=== PATIENT | female | born 1935 | race Caucasian/White ===

== ENCOUNTER 2021-11-26 21:54 | Emergency (ER) | payer MEDICARE ==
[2021-11-26 22:25] VITALS: RESP 18
[2021-11-27] MEDS ORDERED: PROPARACAINE 0.5% OPHTH DROPS 15 ML BTL RIGHT EYE STA (01:37)
[2021-11-27] MEDS ORDERED: ONDANSETRON 4 MG/2 ML VIAL IVP STA (02:03)
[2021-11-27] MEDS ORDERED: HYDROmorphone 0.5 MG/0.5 ML SYRINGE IVP STA (02:03)
[2021-11-27] MEDS ORDERED: ONDANSETRON ODT 4 MG TAB PO STA (03:00)
[2021-11-27] MEDS ORDERED: HYDROmorphone 0.5 MG/0.5 ML SYRINGE IM STA (03:00)
--- NOTE | 2021-11-27 03:07 | ED ---
General Adult HPI - General Chief complaint: Nausea/Vomiting/Diarrhea Stated complaint: Right Eye Problem Time Seen by Provider: 11/27/21 01:02 Source: patient Mode of arrival: ambulatory Limitations: no limitations - History of Present Illness Initial comments: This patient is a 86-year-old woman presenting to have evaluation mainly for right eye pain, headache, nausea and vomiting. Symptoms have been going on but were initially mild for a couple of days, and then became more and more severe over the course of the of today. The patient had actually gone to [facility] earlier in the day was seen there and given antibiotic drops to use. The patient states that her symptoms continued to worsen so she presents here. The patient is initially triaged and has nausea and vomiting but when I see the patient her complaint is definitely more eye related. She does note that she had injection to the right eye for macular degeneration on Saturday through a visiting bingo clerk that Dr. Barajas's office. She has not noted any fever or chills. The patient noticed that her eye was progressively more red over the course of today. There was pain. There was associated headache. She states that the vision is very blurry with the right eye. -: days(s) Location: eyes Radiation: non-radiation Quality: aching Consistency: constant Improves with: none Worsens with: none Associated Symptoms: headaches, nausea/vomiting Treatments Prior to Arrival: none - Related Data Home Medications Medication Instructions Recorded Confirmed Estradiol [Estrace] 1 mg PO Q2D 05/19/14 04/13/15 Omeprazole [PriLOSEC] 20 mg PO QAM 05/19/14 04/13/15 HYDROcodone/APAP 5-325MG [[place] 5] 1 each PO Q6H PRN 08/23/14 04/13/15 Focus 1 tab PO BID 10/04/14 04/13/15 Ascorbic Acid [Vitamin C] 500 mg PO DAILY 03/02/15 04/13/15 Calcium Carbonate/Vitamin D3 1 each PO DAILY 03/02/15 04/13/15 [Calcium 600 + Vit D Tablet] Acetaminophen [Tylenol] 500 mg PO Q4-6H PRN 03/23/15 04/13/15 Allergies Allergy/AdvReac Type Severity Reaction Status Date / Time morphine AdvReac Vomiting Verified 11/26/21 22:25 Review of Systems ROS Statement: Those systems with pertinent positive or pertinent negative responses have been documented in the HPI. ROS Other: All systems not noted in ROS Statement are negative. Constitutional: Denies: fever, chills Eyes: Reports: eye pain, vision change ENT: Denies: congestion Respiratory: Denies: cough, dyspnea Cardiovascular: Denies: chest pain, palpitations, syncope Gastrointestinal: Reports: nausea, vomiting. Denies: abdominal pain Genitourinary: Denies: dysuria Musculoskeletal: Denies: back pain Skin: Denies: rash Neurological: Reports: headache. Denies: weakness, numbness, paresthesias, confusion Past Medical History Past Medical History: GERD/Reflux, Hyperlipidemia, Osteoarthritis (OA) Additional Past Medical History / Comment(s): LOWER BACK PAIN. History of Any Multi-Drug Resistant Organisms: None Reported Past Surgical History: Appendectomy, Section, Hysterectomy, Joint Replacement, Tonsillectomy Additional Past Surgical History / Comment(s): RT KNEE REPLACEMENT. HIATAL HERNIA REPAIR. CATARACTS REMOVED. liver biopsy 12/10 Past Anesthesia/Blood Transfusion Reactions: No Reported Reaction Past Psychological History: No Psychological Hx Reported Smoking Status: Never smoker Past Alcohol Use History: None Reported Past Drug Use History: None Reported - Past Family History Mother Family Medical History: Cancer General Exam Limitations: no limitations General appearance: alert Head exam: Present: atraumatic, normocephalic Eye exam: Present: conjunctival injection. Absent: scleral icterus Expanded Eyelids: Normal Inspection: Right Sclera/Conjunctival: Normal Inspection: Left, Injection: Right Anterior chamber: Normal Inspection: Left IOP measured with: other (Right eye pressure is 26 using the iCare device) ENT exam: Present: normal oropharynx Neck exam: Present: normal inspection, full ROM. Absent: lymphadenopathy Respiratory exam: Present: normal lung sounds bilaterally. Absent: respiratory distress, wheezes, rales, rhonchi, stridor Cardiovascular Exam: Present: regular rate, normal rhythm, normal heart sounds. Absent: systolic murmur, diastolic murmur, rubs, gallop GI/Abdominal exam: Present: soft. Absent: distended, tenderness, guarding, rebound, rigid, mass Extremities exam: Present: normal inspection, normal capillary refill. Absent: pedal edema, calf tenderness Back exam: Present: normal inspection. Absent: CVA tenderness (R), CVA tenderness (L) Neurological exam: Present: alert Skin exam: Present: warm, dry, intact, normal color. Absent: rash Course Vital Signs 11/26/21 11/27/21 11/27/21 22:21 01:44 03:18 Temperature 99 F 97.8 F Pulse Rate 83 65 91 Respiratory 18 18 18 Rate Blood Pressure 152/69 146/79 153/84 O2 Sat by Pulse 98 98 98 Oximetry Medical Decision Making - Medical Decision Making This patient is an 86-year-old woman who presents here with right eye complaint associated headache, nausea and vomiting. Patient is examined, including with the slit lamp, and high pressures are taken. The findings and the slit lamp included conjunctival injection, some scleral inflammation, corneal clouding, and hypopyon. There is no ophthalmology coverage here tonight though I did try to call Dr. Barajas, as she attends's clinic for the macular degeneration shots. I then recommended transfer for the patient to be seen by ophthalmology tonight. The patient feels that the transfer occurring in the middle of the night will not result in her seeing an bingo clerk sooner than if she shows up at the clinic at 8 AM. I did try to persuade her to be seen but she is going to decline transferring go directly to the clinic opens. Discussed the risks associated with not seeing the bingo clerk. The patient will return if there is any problem with her plan. Disposition Clinical Impression: Iritis, Hypopyon of right eye Disposition: Left Against Medical Advice Condition: Undetermined Instructions (If sedation given, give patient instructions): Iritis (ED) Is patient prescribed a controlled substance at d/c from ED?: No Referrals: Kyle Olvera MD [Primary Care Provider] - 1-2 days Rogelio Barajas MD [STAFF PHYSICIAN] - 1-2 days
[2021-11-27 03:19] VITALS: BP 153/84; PULSE 91; TEMP 97.8
== END 2021-11-27 03:22 | disposition left against medical advice (07) ==
LOC: SUPCPDRO 21:54 → EC 21:54
DX: H20.051 Hypopyon, right eye (principal); H20.9 Unspecified iridocyclitis; R11.2 Nausea with vomiting, unspecified; R51.9 Headache, unspecified; K21.9 Gastro-esophageal reflux disease without esophagitis; Z88.5 Allergy status to narcotic agent; Z53.29 Procedure and treatment not carried out because of patient's decision for other reasons; Z79.899 Other long term (current) drug therapy
CPT/HCPCS: 99283; 96372; J1170

== ENCOUNTER 2023-03-25 03:44 | Emergency (ER) | payer MEDICARE ==
[2023-03-25] MEDS ORDERED: KETOROLAC 15 MG/ML 1 ML VIAL IVP STA (04:22)
[2023-03-25] MEDS ORDERED: SODIUM CHLORIDE 0.9% 1,000 ML IV STA (04:22)
[2023-03-25] MEDS ORDERED: ACETAMINOPHEN TAB 500 MG TAB PO STA (04:22)
[2023-03-25] MEDS ORDERED: IPRATROPIUM-ALBUTEROL 3 ML NEB INHALATION STA (04:22)
--- NOTE | 2023-03-25 04:24 | ED ---
SOB HPI - General Source: EMS, RN notes reviewed, old records reviewed, Caregiver Mode of arrival: EMS Limitations: no limitations - History of Present Illness MD Complaint: anxiety (With pain, hip pain chronic pain) -: minutes(s) Severity: mild Quality: aching Consistency: constant Improves With: nothing Worsens With: nothing Context: anxiety Associated Symptoms: denies other symptoms Treatments Prior to Arrival: none <Yo Owens - Last Filed: 03/25/23 06:05> <Gerardo Lawrence - Last Filed: 03/25/23 08:33> - General Chief Complaint: Shortness of Breath Stated Complaint: Shorteness of breath Time Seen by Provider: 03/25/23 03:53 - History of Present Illness Initial Comments: This is a 87-year-old female DF for evaluation. Patient woke from sleep tonight and was pretty significantly anxious breathing fast having some pain increased pain which she has a history of. Patient has no traumas no other issues and symptoms began when she woke up. Patient per EMS was maybe had a fever on arrival. Arrival here to the ER patient has no complaints no shortness of breath which she was complaining of earlier but does admit to pain especially hip pain with history of chronic hip pain. Daughter is at bedside of ulcer by history and states patient doesn't seem to be admitted normal baseline self. Patient does not usually presents with hospital usually [facility] under care of her own physician (Yo Owens) - Related Data Home Medications Medication Instructions Recorded Confirmed Omeprazole [PriLOSEC] 20 mg PO QAM 05/19/14 04/13/15 estradioL [Estrace] 1 mg PO Q2D 05/19/14 04/13/15 HYDROcodone/APAP 5-325MG [[place] 5] 1 each PO Q6H PRN 08/23/14 04/13/15 Focus 1 tab PO BID 10/04/14 04/13/15 Ascorbic Acid [Vitamin C] 500 mg PO DAILY 03/02/15 04/13/15 Calcium Carbonate/Vitamin D3 1 each PO DAILY 03/02/15 04/13/15 [Calcium 600 + Vit D Tablet] Acetaminophen [Tylenol] 500 mg PO Q4-6H PRN 03/23/15 04/13/15 Allergies Allergy/AdvReac Type Severity Reaction Status Date / Time morphine AdvReac Vomiting Verified 11/26/21 22:25 Review of Systems ROS Other: All systems not noted in ROS Statement are negative. <AnnmarieYo lawrence Mandi - Last Filed: 03/25/23 06:05> ROS Other: All systems not noted in ROS Statement are negative. <MelindaGerardo D - Last Filed: 03/25/23 08:33> ROS Statement: Those systems with pertinent positive or pertinent negative responses have been documented in the HPI. Past Medical History Past Medical History: GERD/Reflux, Hyperlipidemia, Osteoarthritis (OA) Additional Past Medical History / Comment(s): LOWER BACK PAIN, liver disease, a- fib. History of Any Multi-Drug Resistant Organisms: None Reported Past Surgical History: Appendectomy, Section, Hysterectomy, Joint Replacement, Tonsillectomy Additional Past Surgical History / Comment(s): RT KNEE REPLACEMENT. HIATAL HERNIA REPAIR. CATARACTS REMOVED. liver biopsy 12/10 Past Anesthesia/Blood Transfusion Reactions: No Reported Reaction Past Psychological History: No Psychological Hx Reported Smoking Status: Never smoker Past Alcohol Use History: None Reported Past Drug Use History: None Reported - Past Family History Mother Family Medical History: Cancer <GracielaYo - Last Filed: 03/25/23 06:05> General Exam Limitations: no limitations General appearance: alert, in no apparent distress, anxious Head exam: Present: atraumatic, normocephalic, normal inspection Eye exam: Present: normal appearance, PERRL, EOMI. Absent: scleral icterus, conjunctival injection, periorbital swelling ENT exam: Present: normal exam, mucous membranes moist Neck exam: Present: normal inspection. Absent: tenderness, meningismus, lymphadenopathy Respiratory exam: Present: normal lung sounds bilaterally. Absent: respiratory distress, wheezes, rales, rhonchi, stridor Cardiovascular Exam: Present: regular rate, normal rhythm, normal heart sounds. Absent: systolic murmur, diastolic murmur, rubs, gallop, clicks GI/Abdominal exam: Present: soft, normal bowel sounds. Absent: distended, tenderness, guarding, rebound, rigid Extremities exam: Present: normal inspection, full ROM, normal capillary refill. Absent: tenderness, pedal edema, joint swelling, calf tenderness Back exam: Present: normal inspection Neurological exam: Present: alert, oriented X3, CN II-XII intact Psychiatric exam: Present: normal affect, normal mood Skin exam: Present: warm, dry, intact, normal color. Absent: rash <Yo Owens - Last Filed: 03/25/23 06:05> Course <Yo Owens - Last Filed: 03/25/23 06:05> Vital Signs 03/25/23 03/25/23 03/25/23 03:45 05:14 05:24 Temperature 99.5 F Pulse Rate 96 86 90 Respiratory 22 Rate Blood Pressure 134/51 O2 Sat by Pulse 94 L Oximetry 03/25/23 03/25/23 03/25/23 05:33 05:57 06:00 Temperature 99.7 F H Pulse Rate 92 84 Respiratory 18 16 Rate Blood Pressure 101/43 104/41 O2 Sat by Pulse 98 96 Oximetry - Reevaluation(s) Reevaluation #1: 03/25/23 06:05 Record is reviewed (Yo Owens) Reevaluation #2: 03/25/23 06:06 Symptoms improved pain is improved feels good for discharge home (Yo Owens) Reevaluation #3: 03/25/23 06:06 Patient family informed of results here in the ER (Yo Owens) Reevaluation #4: 03/25/23 04:24 Was pt. sent in by a medical professional or institution (, PA, STUDENT DEVELOPMENT SPECIALIST, urgent care, hospital, or correction...) When possible be specific @ -no Did you speak to anyone other than the patient for history (EMS, parent, family, police, friend...)? What history was obtained from this source @ -no Did you review nursing and triage notes (agree or disagree)? Why? @ -agree Are old charts reviewed (outside hosp., previous admission, EMS record, old EKG, old radiological studies, urgent care reports/EKG's, correction records)? Report findings @ -yes Differential Diagnosis (chest pain, altered mental status, abdominal pain women, abdominal pain men, vaginal bleeding, weakness, fever, dyspnea, syncope, headache, dizziness, GI bleed, back pain, seizure, CVA, palpatations, mental health, musculoskeletal)? @ -prior EKG interpreted by me (3pts min.). @ -yes X-rays interpreted by me (1pt min.). @ -yes CT interpreted by me (1pt min.). @ -no U/S interpreted by me (1pt. min.). @ -no What testing was considered but not performed or refused? (CT, X-rays, U/S, labs)? Why? @ -none What meds were considered but not given or refused? Why? @ -none Did you discuss the management of the patient with other professionals (professionals i.e. DrKaden, PA, STUDENT DEVELOPMENT SPECIALIST, lab, RT, psych nurse, psychotherapist social worker, paper sorter and counter, teacher, combat systems officer, casework specialist)? Give summary @ -no Was smoking cessation discussed for >3mins.? @ -no Was critical care preformed (if so, how long)? @ -no Were there social determinants of health that impacted care today? How? (Homelessness, low income, unemployed, alcoholism, drug addiction, transportation, low edu. Level, literacy, decrease access to med. care, halfway, rehab)? @ -none Was there de-escalation of care discussed even if they declined (Discuss DNR or withdrawal of care, Hospice)? DNR status @ -no What co-morbidities impacted this encounter? (DM, HTN, Smoking, COPD, CAD, Cancer, CVA, ARF, Chemo, Hep., AIDS, mental health diagnosis, sleep apnea, morbid obesity)? @ -none Was patient admitted / discharged? Hospital course, mention meds given and route, prescriptions, significant lab abnormalities, going to OR and other pertinent info. @ - Undiagnosed new problem with uncertain prognosis? @ -no Drug Therapy requiring intensive monitoring for toxicity (Heparin, Nitro, Insulin, Cardizem)? @ -no Were any procedures done? @ -no Diagnosis/symptom? @ - Acute, or Chronic, or Acute on Chronic? @ -Acute Uncomplicated (without systemic symptoms) or Complicated (systemic symptoms)? @ -Complicated Side effects of treatment? @ -no Exacerbation, Progression, or Severe Exacerbation? @ -exacerbation Poses a threat to life or bodily function? How? (Chest pain, [place], [place], pneumonia, PE, COPD, DKA, ARF, appy, cholecystitis, CVA, Diverticulitis, Homicidal, Suicidal, threat to staff... and all critical care pts) @ -yes (Yo Owens) Reevaluation #5: 03/25/23 06:06 Differential Dyspnea: Coronary syndrome, arrhythmia, tamponade, asthma, COPD, pulmonary embolism, pneumonia, pneumothorax, pulmonary effusion, anaphylaxis, diabetic ketoacidosis, flailed chest, pulmonary contusion, diaphragmatic rupture, anemia, neuromuscular, this is not meant to be an all-inclusive list. (Yo Owens) Medical Decision Making - Lab Data Result diagrams: 03/25/23 04:06 03/25/23 04:06 - EKG Data -: EKG Interpreted by Me (EKG is sinus 74.IL 75 QRS 150 QTC 426) - Radiology Data Radiology results: report reviewed (Chest x-rays negative for acute disease), image reviewed <Yo Owens - Last Filed: 03/25/23 06:05> - Lab Data Result diagrams: 03/25/23 04:06 03/25/23 04:06 <Gerardo Lawrence - Last Filed: 03/25/23 08:33> - Medical Decision Making 87 female dear with nonspecific undifferentiated shortness of breath but has no risk for distress here in the ER oximetry was normal x-ray is negative. Patient's lab testing is negative and she can be discharged home (Yo Owens) Patient care is signed out to me by previous shift physician, Dr. Gray. Briefly, patient is a 87-year-old female presents emergency department for abrupt awakening from sleep for shaking chills and fever. She had a temperature at home of 102. Patient was evaluated at the bedside and spoken to at the bedside. She is well-appearing she is eager to be discharged. Do not have any old labs for comparison. Sign out was to follow-up with second troponin. Patient's labs were reviewed there significant lab abnormalities. Lab abnormalities were discussed with patient she is not sure what her baseline lab levels are. She does report that she has history of anemia. She sees a laboratory technologist for A. fib. Denies any chest pain or shortness of breath. Patient reports that she feels at baseline. Discussed with patient that it is difficult to confidently discharge her without any immediate abilities to review her old labs. She states that she will contact her primary care physician first in the morning tomorrow. She wants to be discharged. She understands that she does have lab abnormalities which may represent something serious. She is given strict return precautions. Second troponin is stable. (Gerardo Lawrence) - Lab Data Lab Results 03/25/23 03/25/23 03/25/23 Range/Units 04:06 04:06 04:06 WBC 2.4 L (3.8-10.6) k/uL RBC 3.21 L (3.80-5.40) m/uL Hgb 10.5 L (11.4-16.0) gm/dL Hct 32.6 L (34.0-46.0) % MCV 101.7 H (80.0-100.0) fL MCH 32.9 (25.0-35.0) pg MCHC 32.3 (31.0-37.0) g/dL RDW 15.3 (11.5-15.5) % Plt Count 120 L (150-450) k/uL MPV 9.2 Neutrophils % 81 % Lymphocytes % 15 % Monocytes % 2 % Eosinophils % 2 % Basophils % 0 % Neutrophils # 2.0 (1.3-7.7) k/uL Lymphocytes # 0.4 L (1.0-4.8) k/uL Monocytes # 0.0 (0-1.0) k/uL Eosinophils # 0.1 (0-0.7) k/uL Basophils # 0.0 (0-0.2) k/uL Hypochromasia Slight Macrocytosis Slight PT 13.0 H (9.0-12.0) sec INR 1.3 H (<1.2) APTT 18.7 L (22.0-30.0) sec Sodium 140 (137-145) mmol/L Potassium 4.2 (3.5-5.1) mmol/L Chloride 110 H (98-107) mmol/L Carbon Dioxide 18 L (22-30) mmol/L Anion Gap 12 mmol/L BUN 50 H (7-17) mg/dL Creatinine 1.43 H (0.52-1.04) mg/dL Est GFR (CKD-EPI)AfAm 39 (>60 ml/min/1.73 sqM) Est GFR (CKD-EPI)NonAf 33 (>60 ml/min/1.73 sqM) Glucose 86 (74-99) mg/dL Lactic Ac Sepsis Rflx Plasma Lactic Acid Natanael (0.7-2.0) mmol/L Calcium 8.2 L (8.4-10.2) mg/dL Magnesium 1.7 (1.6-2.3) mg/dL Total Bilirubin 0.8 (0.2-1.3) mg/dL AST 42 H (14-36) U/L ALT 34 (4-34) U/L Alkaline Phosphatase 181 H (38-126) U/L Troponin I (0.000-0.034) ng/mL NT-Pro-B Natriuret Pep 784 pg/mL Total Protein 7.4 (6.3-8.2) g/dL Albumin 3.5 (3.5-5.0) g/dL Influenza Type A (PCR) (Not Detectd) Influenza Type B (PCR) (Not Detectd) RSV (PCR) (Not Detectd) SARS-CoV-2 (PCR) (Not Detectd) 03/25/23 03/25/23 03/25/23 Range/Units 04:06 04:06 04:06 WBC (3.8-10.6) k/uL RBC (3.80-5.40) m/uL Hgb (11.4-16.0) gm/dL Hct (34.0-46.0) % MCV (80.0-100.0) fL MCH (25.0-35.0) pg MCHC (31.0-37.0) g/dL RDW (11.5-15.5) % Plt Count (150-450) k/uL MPV Neutrophils % % Lymphocytes % % Monocytes % % Eosinophils % % Basophils % % Neutrophils # (1.3-7.7) k/uL Lymphocytes # (1.0-4.8) k/uL Monocytes # (0-1.0) k/uL Eosinophils # (0-0.7) k/uL Basophils # (0-0.2) k/uL Hypochromasia Macrocytosis PT (9.0-12.0) sec INR (<1.2) APTT (22.0-30.0) sec Sodium (137-145) mmol/L Potassium (3.5-5.1) mmol/L Chloride (98-107) mmol/L Carbon Dioxide (22-30) mmol/L Anion Gap mmol/L BUN (7-17) mg/dL Creatinine (0.52-1.04) mg/dL Est GFR (CKD-EPI)AfAm (>60 ml/min/1.73 sqM) Est GFR (CKD-EPI)NonAf (>60 ml/min/1.73 sqM) Glucose (74-99) mg/dL Lactic Ac Sepsis Rflx Plasma Lactic Acid Natanael 2.4 H* (0.7-2.0) mmol/L Calcium (8.4-10.2) mg/dL Magnesium (1.6-2.3) mg/dL Total Bilirubin (0.2-1.3) mg/dL AST (14-36) U/L ALT (4-34) U/L Alkaline Phosphatase (38-126) U/L Troponin I 0.080 H* (0.000-0.034) ng/mL NT-Pro-B Natriuret Pep pg/mL Total Protein (6.3-8.2) g/dL Albumin (3.5-5.0) g/dL Influenza Type A (PCR) Not Detected (Not Detectd) Influenza Type B (PCR) Not Detected (Not Detectd) RSV (PCR) Not Detected (Not Detectd) SARS-CoV-2 (PCR) Not Detected (Not Detectd) 03/25/23 03/25/23 Range/Units 05:03 07:17 WBC (3.8-10.6) k/uL RBC (3.80-5.40) m/uL Hgb (11.4-16.0) gm/dL Hct (34.0-46.0) % MCV (80.0-100.0) fL MCH (25.0-35.0) pg MCHC (31.0-37.0) g/dL RDW (11.5-15.5) % Plt Count (150-450) k/uL MPV Neutrophils % % Lymphocytes % % Monocytes % % Eosinophils % % Basophils % % Neutrophils # (1.3-7.7) k/uL Lymphocytes # (1.0-4.8) k/uL Monocytes # (0-1.0) k/uL Eosinophils # (0-0.7) k/uL Basophils # (0-0.2) k/uL Hypochromasia Macrocytosis PT (9.0-12.0) sec INR (<1.2) APTT (22.0-30.0) sec Sodium (137-145) mmol/L Potassium (3.5-5.1) mmol/L Chloride (98-107) mmol/L Carbon Dioxide (22-30) mmol/L Anion Gap mmol/L BUN (7-17) mg/dL Creatinine (0.52-1.04) mg/dL Est GFR (CKD-EPI)AfAm (>60 ml/min/1.73 sqM) Est GFR (CKD-EPI)NonAf (>60 ml/min/1.73 sqM) Glucose (74-99) mg/dL Lactic Ac Sepsis Rflx Y Plasma Lactic Acid Natanael (0.7-2.0) mmol/L Calcium (8.4-10.2) mg/dL Magnesium (1.6-2.3) mg/dL Total Bilirubin (0.2-1.3) mg/dL AST (14-36) U/L ALT (4-34) U/L Alkaline Phosphatase (38-126) U/L Troponin I 0.083 H* (0.000-0.034) ng/mL NT-Pro-B Natriuret Pep pg/mL Total Protein (6.3-8.2) g/dL Albumin (3.5-5.0) g/dL Influenza Type A (PCR) (Not Detectd) Influenza Type B (PCR) (Not Detectd) RSV (PCR) (Not Detectd) SARS-CoV-2 (PCR) (Not Detectd) Disposition Is patient prescribed a controlled substance at d/c from ED?: No Time of Disposition: 06:00 <Yo Owens - Last Filed: 03/25/23 06:05> <Gerardo Lawrence - Last Filed: 03/25/23 08:33> Clinical Impression: Dyspnea Disposition: HOME SELF-CARE Condition: Fair Instructions (If sedation given, give patient instructions): Dyspnea (ED), Shortness of Breath (ED) Referrals: None,Stated [REFERRING] - 1-2 days
[2023-03-25 04:45] LABS: Basophils % (A) 0 %; Eosinophils # (A) 0.1 k/uL (0-0.7); Eosinophils % (A) 2 %; HCT 32.6 % (34.0-46.0); HGB 10.5 gm/dL (11.4-16.0); Hypochromasia Slight; Lymphocytes # (A) 0.4 k/uL (1.0-4.8); Lymphocytes % (A) 15 %; MCH 32.9 pg (25.0-35.0); MCHC 32.3 g/dL (31.0-37.0); MCV 101.7 fL (80.0-100.0); Macrocytosis Slight; Mean Platelet Volume 9.2; Monocytes % (A) 2 %; Neutrophils % (A) 81 %; Platelet Count 120 k/uL (150-450); RBC 3.21 m/uL (3.80-5.40); RDW 15.3 % (11.5-15.5); WBC 2.4 k/uL (3.8-10.6)
[2023-03-25 04:46] LABS: ALT 34 U/L (4-34); AST 42 U/L (14-36); African American GFR (CKD) 39 (>60 ml/min/1.73 sqM); Albumin 3.5 g/dL (3.5-5.0); Alkaline Phosphatase 181 U/L (38-126); Anion Gap 12 mmol/L; Blood Urea Nitrogen 50 mg/dL (7-17); Calcium 8.2 mg/dL (8.4-10.2); Carbon Dioxide 18 mmol/L (22-30); Chloride 110 mmol/L (98-107); Glucose 86 mg/dL (74-99); Magnesium 1.7 mg/dL (1.6-2.3); Non-African American GFR(CKD) 33 (>60 ml/min/1.73 sqM); Potassium 4.2 mmol/L (3.5-5.1); Sodium 140 mmol/L (137-145); Total Bilirubin 0.8 mg/dL (0.2-1.3); Total Protein 7.4 g/dL (6.3-8.2)
[2023-03-25] MEDS ORDERED: MORPHINE SULFATE 4 MG/ML SYRINGE IVP STA (04:48)
[2023-03-25 04:49] LABS: INR 1.3 (<1.2)
[2023-03-25 04:54] LABS: NT-Pro-B-Type Natriuretic Pept 784 pg/mL
[2023-03-25 05:07] LABS: Partial Thromboplastin Time 18.7 sec (22.0-30.0)
[2023-03-25] MEDS ORDERED: HYDROmorphone 0.5 MG/0.5 ML SYRINGE IVP STA (05:07)
--- NOTE | 2023-03-25 06:12 | XR ---
EXAM: XR Chest, 1 View CLINICAL HISTORY: ITS.REASON XR Reason: sob TECHNIQUE: Frontal view of the chest. COMPARISON: No previous studies. FINDINGS: Lungs: Unremarkable. No consolidative changes. Pleural space: Unremarkable. No pneumothorax. No pleural effusions. Heart: Mild cardiomegaly. Mediastinum: Unremarkable. Bones/joints: Osteopenia. Vasculature: Atherosclerotic disease. IMPRESSION: 1. Mild cardiomegaly per 2. Atherosclerotic disease. 3. No consolidative change. 4. No pleural effusions.
[2023-03-25] MEDS ORDERED: HYDROcodone/APAP 5-325MG 1 EACH TAB PO STA (07:21)
[2023-03-25 08:48] VITALS: BP 105/68; PULSE 80; RESP 18; TEMP 99.6
== END 2023-03-25 08:47 | disposition home or self-care (01) ==
LOC: EC 03:44
DX: R06.00 Dyspnea, unspecified (principal); K21.9 Gastro-esophageal reflux disease without esophagitis; E78.5 Hyperlipidemia, unspecified; M19.90 Unspecified osteoarthritis, unspecified site; I45.10 Unspecified right bundle-branch block; I51.7 Cardiomegaly; Z88.5 Allergy status to narcotic agent; Z79.899 Other long term (current) drug therapy; Z20.822 Contact with and (suspected) exposure to COVID-19
CPT/HCPCS: 99285; 96374; 96361 ×3; 36415; 94640; 93005; 83880; 80053; 83605; 83735; 84484; 85025; 85610; 85730; 87636; 71045; J1885